=== PATIENT | female | born 1940 | race Caucasian/White ===

== ENCOUNTER → 2017-04-30 | Outpatient (CLI) | payer OTHER, MEDICAID ==
[~2017-04-30] MED LIST: ASPI-496 PO; ASPI-621 PO; CLOP75TA52 PO; FAMO40TA61 PO; HYDR1TAB12 PO; LEVO88TA4 PO; MULT-6 PO; OMEP-110 PO; OMNIPAQUE 350 MG/ML, 100ML BOTTLE ONE; SIMV40TA PO; SIMV40TA3 PO; TRAM-47 PO; TRAM50TA2 PO
== END | disposition home or self-care (01) ==
LOC: CFH 14:09
PROVIDERS: ATTEND Surgery
DX: I71.4 Abdominal aortic aneurysm, without rupture (principal); Z95.820 Peripheral vascular angioplasty status with implants and grafts
CPT/HCPCS: 74174; 82565; Q9967

== ENCOUNTER → 2017-07-05 | Outpatient (CLI) | payer OTHER, MEDICAID ==
[~2017-07-05] MED LIST changes: -OMNIPAQUE 350 MG/ML, 100ML BOTTLE ONE
== END | disposition home or self-care (01) ==
LOC: CVU 15:44
PROVIDERS: ATTEND Surgery
DX: I65.23 Occlusion and stenosis of bilateral carotid arteries (principal); I65.29 Occlusion and stenosis of unspecified carotid artery
CPT/HCPCS: 93880

== ENCOUNTER → 2017-08-02 | Outpatient (CLI) | payer OTHER, MEDICAID | LOC: CFH 08:51 | PROVIDERS: ATTEND Family Medicine | DX: Z13.820 Encounter for screening for osteoporosis (principal); M81.0 Age-related osteoporosis without current pathological fracture; G95.89 Other specified diseases of spinal cord; I71.4 Abdominal aortic aneurysm, without rupture | CPT/HCPCS: 77080 ==

== ENCOUNTER → 2018-01-17 | Outpatient (CLI) | payer OTHER, MEDICAID | END | disposition home or self-care (01) | LOC: CVU 10:08 | PROVIDERS: ATTEND Surgery | DX: I74.5 Embolism and thrombosis of iliac artery (principal); I10 Essential (primary) hypertension; E78.5 Hyperlipidemia, unspecified; I63.9 Cerebral infarction, unspecified; Z87.891 Personal history of nicotine dependence; Z86.79 Personal history of other diseases of the circulatory system | CPT/HCPCS: 93978 ==

== ENCOUNTER → 2018-01-17 | Outpatient (CLI) | payer OTHER, MEDICAID | END | disposition home or self-care (01) | LOC: RAD 16:16 | PROVIDERS: ATTEND Surgery | DX: I74.5 Embolism and thrombosis of iliac artery (principal) | CPT/HCPCS: 72170; 74021 ==

== ENCOUNTER → 2018-07-15 | Outpatient (CLI) | payer MEDICARE, MEDICAID ==
[~2018-07-15] MED LIST changes: -ASPI-621 PO; +ASPI81TA45 PO; -HYDR1TAB12 PO; +HYDR1TAB13 PO
== END | disposition home or self-care (01) ==
LOC: CVU 07:40
PROVIDERS: ATTEND Surgery
DX: I71.4 Abdominal aortic aneurysm, without rupture (principal); I10 Essential (primary) hypertension; E78.5 Hyperlipidemia, unspecified
CPT/HCPCS: 93978

== ENCOUNTER → 2018-08-29 | Outpatient (CLI) | payer MEDICARE, MEDICAID | END | disposition home or self-care (01) | LOC: CFH 11:22 | PROVIDERS: ATTEND Surgery | DX: I71.4 Abdominal aortic aneurysm, without rupture (principal) | CPT/HCPCS: 72170; 74021 ==

== ENCOUNTER 2019-05-04 07:30 | Outpatient (CLI) | payer MEDICARE ==
[~2019-05-04 07:30] MED LIST changes: +SIMV40TA20 PO; -SIMV40TA3 PO
== END 2019-05-04 23:59 | disposition home or self-care (01) ==
LOC: CVU 07:30
PROVIDERS: ATTEND Surgery
DX: I71.4 Abdominal aortic aneurysm, without rupture (principal); Z87.898 Personal history of other specified conditions
CPT/HCPCS: 93978